=== PATIENT | male | born 1955 | race Caucasian/White ===

== ENCOUNTER 2022-10-16 15:48 | Emergency (ER) | payer OTHER, MEDICARE ==
[2022-10-16] MEDS ORDERED: ONDANSETRON 4 MG/2 ML VIAL ONE (16:16)
[2022-10-16] MEDS ORDERED: FAMOTIDINE 20 MG/2 ML VIAL IV ONE (16:16)
[2022-10-16] MEDS ORDERED: NA CHLORIDE 0.9% 500 ML ONE (16:16)
[2022-10-16 16:37] LABS: Absolute Lymphocytes (CBC) 1.1 K/uL (0.7-4.9); Hematocrit 40.4 % (39.6-49.0); Lymphocytes % 9.4 % (15.3-44.8); MCV 99.1 fL (80-100); MPV 8.9 fL (7.6-11.3); Platelets 211 thou/uL (152-406); RBC Red Blood Cell Count 4.08 M/uL (4.33-5.43)
[2022-10-16 16:43] LABS: Albumin 3.4 g/dL (3.4-5.0); Bilirubin Total 0.9 mg/dL (0.2-1.0); Protein, Total 6.7 g/dL (6.4-8.2)
[2022-10-16 17:29] LABS: Specific Gravity 1.011 (1.005-1.030); Urine Bacteria <20 /HPF (<20); Urine Bilirubin NEGATIVE (Negative); Urine Blood 2+ (Negative); Urine Clarity Extremely Turbid (Clear); Urine Color Light-Yellow (Yellow); Urine Crystals Unidentified Few /HPF (None Seen); Urine Glucose NEGATIVE (Negative); Urine Mucus Slight /HPF (None Seen); Urine Protein 1+ (Negative); Urine RBC >50 /HPF (None Seen); Urine Urobilinogen Normal (Normal); Urine WBC Clump Rare /HPF (None Seen); Urine pH 7.5 (5.0-7.0)
--- NOTE | 2022-10-16 19:50 | RAD REPORT ---
EXAM DESCRIPTION: CT - Stone Protocol - 10/16/2022 7:06 pm CLINICAL HISTORY: right flank pain COMPARISON: No comparisons TECHNIQUE: Thin cut axial CT imaging of the abdomen and pelvis was performed without IV contrast. Mu ltiplanar reformats were generated and reviewed. All CT scans are performed using dose optimization technique as appropriate and may include automated exposure control or mA/KV adjustment according to patient size. FINDINGS: No suspicious findings in the lung bases. The liver, spleen, and pancreas show no suspicious findings. Gallbladder and biliary tree are also wi thout suspicious finding. Atrophic changes of the left more than right kidney, with numerous discrete calcifications at the lef t superior pole, which may be present within a cyst or represent stones within a caliceal diverticulu m. No suspicious parenchymal findings within limits of noncontrast technique. Right mild to moderate hydroureteronephrosis with right perinephric fat stranding, without evidence of obstructing calculi. Numerous nonobstructing left mid to lower pole renal calculi the largest measuring 8 millimeter. No dilated bowel loops or bowel wall thickening. No free air, free fluid or inflammatory stranding. N o hernia, mass or bulky lymphadenopathy. The urinary bladder is without significant wall thickening g iven a degree of nondistention, demonstrates numerous layering calculi dependently largest measuring 8 millimeter. Radiation beads are seen within the prostate gland. Inferior endplate L2 mild central compression deformity. This is likely chronic given this vacuum phe nomenon and adjacent disc space. Sclerotic lesion involving the posterior body, pedicle, and base of the transverse process of S1 measuring 4 cm. Other numerous smaller sclerotic lesions throughout the pelvic bones and proximal right femur as well as few similar lesions within the upper lumbar vertebra e. . IMPRESSION: Mild to moderate right hydroureteronephrosis with right perinephric fat stranding. No ob structing calculi along the right urinary tract, although there are calculi layering dependently with in the urinary bladder. Findings may relate to a recently passed stone. Asymmetric atrophy of the left kidney. Numerous discrete calcifications seen at the left upper pole w hich may be within a cyst or represent stones within a caliceal diverticulum. Other nonobstructing le ft renal calculi largest measuring 8 millimeter. Numerous sclerotic lesions as above, indeterminate, but could relate to osseous metastatic disease.
[2022-10-16] MEDS ORDERED: Meropenem 1000 MG/VIAL IV ONE (20:16)
[2022-10-16] MEDS ORDERED: NA CHLORIDE 0.9% 100 ML ONE (20:16)
--- NOTE | 2022-10-16 20:16 | EDPHYS ---
Physician Documentation [facility] Name: Sanchez Emery Age: 66 yrs Sex: Male : 1955 Arrival Date: 10/16/2022 Time: 15:48 Bed 16 Private MD: ED Physician Parviz Sutton HPI: 10/16 19:22 This 66 yrs old Male presents to ER via EMS with complaints of Abdominal Pain, kdr Nausea/Vomiting. 19:24 Patient presents with right flank pain that began this morning. Patient has not had kdr anything like this before. Patient had some nausea and vomiting along with it. Patient states his last bowel movement about 4 to 5 days ago. Patient otherwise nontoxic-appearing. He responded well to the Zofran given on admission.. Onset: The symptoms/episode began/occurred suddenly, this morning. Severity of symptoms: At their worst the symptoms were mild in the emergency department the symptoms have improved mildly. The patient has not experienced similar symptoms in the past. The patient has not recently seen a physician. Historical: - Allergies: 15:57 No Known Allergies; kc6 - PMHx: 15:57 Diabetes mellitus; Hypertensive disorder; intussceception; hernia; prosate cancer; kc6 - PSHx: 15:57 colon resection; kc6 - Immunization history:: Client reports receiving the 2nd dose of the Covid vaccine, Flu vaccine is up to date. - Social history:: Smoking status: Patient denies any tobacco usage or history of. ROS: 19:24 Constitutional: Negative for fever, chills, and weight loss, Eyes: Negative for injury, kdr pain, redness, and discharge, ENT: Negative for injury, pain, and discharge, Neck: Negative for injury, pain, and swelling, Cardiovascular: Negative for chest pain, palpitations, and edema, Respiratory: Negative for shortness of breath, cough, wheezing, and pleuritic chest pain, Back: Negative for injury and pain, : Negative for injury, bleeding, discharge, and swelling, MS/Extremity: Negative for injury and deformity, Skin: Negative for injury, rash, and discoloration, Neuro: Negative for headache, weakness, numbness, tingling, and seizure activity. Psych: Negative for depression, anxiety, suicide ideation, homicidal ideation, and hallucinations, Allergy/Immunology: Negative for hives, rash, and allergies, Endocrine: Negative for neck swelling, polydipsia, polyuria, polyphagia, and marked weight changes, Hematologic/Lymphatic: Negative for swollen nodes, abnormal bleeding, and unusual bruising. 19:24 Abdomen/GI: Positive for nausea and vomiting, of the anterior aspect of right lateral abdomen, posterior aspect of right lateral abdomen and right lower quadrant. Exam: 19:24 Constitutional: This is a well developed, well nourished patient who is awake, alert, kdr and in no acute distress. Head/Face: Normocephalic, atraumatic. Eyes: Pupils equal round and reactive to light, extra-ocular motions intact. Lids and lashes normal. Conjunctiva and sclera are non-icteric and not injected. Cornea within normal limits. Periorbital areas with no swelling, redness, or edema. Neck: Trachea midline, no thyromegaly or masses palpated, and no cervical lymphadenopathy. Supple, full range of motion without nuchal rigidity, or vertebral point tenderness. No Meningismus. Chest/axilla: Normal chest wall appearance and motion. Nontender with no deformity. No lesions are appreciated. Cardiovascular: Regular rate and rhythm with a normal S1 and S2. No gallops, murmurs, or rubs. Normal PMI, no JVD. No pulse deficits. Respiratory: Lungs have equal breath sounds bilaterally, clear to auscultation and percussion. No rales, rhonchi or wheezes noted. No increased work of breathing, no retractions or nasal flaring. Back: No spinal tenderness. No costovertebral tenderness. Full range of motion. Skin: Warm, dry with normal turgor. Normal color with no rashes, no lesions, and no evidence of cellulitis. MS/ Extremity: Pulses equal, no cyanosis. Neurovascular intact. Full, normal range of motion. Neuro: Awake and alert, GCS 15, oriented to person, place, time, and situation. Cranial nerves II-XII grossly intact. Motor strength 5/5 in all extremities. Sensory grossly intact. Cerebellar exam normal. Normal gait. Psych: Awake, alert, with orientation to person, place and time. Behavior, mood, and affect are within normal limits. 19:24 Abdomen/GI: Inspection: abdomen appears normal, obese Bowel sounds: active, Palpation: soft, mild abdominal tenderness, in the right upper quadrant and right lower quadrant, rebound tenderness, is not appreciated. Vital Signs: 15:55 BP 183 / 76; Pulse 65; Resp 16 S; Temp 97.6(O); Pulse Ox 100% on R/A; Weight 104.33 kg kc6 (R); Height 5 ft. 11 in. (R); Pain 3/10; 17:19 BP 165 / 78; Pulse 70; Resp 20 S; Pulse Ox 98% on R/A; kc6 19:32 BP 134 / 85; Pulse 75; Resp 16 S; Pulse Ox 99% on R/A; ha1 20:30 BP 164 / 78; Pulse 76; Resp 16 S; Pulse Ox 100% on R/A; ha1 21:10 BP 161 / 84; Pulse 74; Resp 19 S; Pulse Ox 100% on R/A; ha1 22:10 BP 102 / 67; Pulse 82; Resp 20 S; Temp 99.2(O); Pulse Ox 97% on R/A; ha1 23:15 BP 143 / 62; Pulse 80; Resp 17 S; Pulse Ox 97% on R/A; ha1 10/17 00:10 BP 138 / 78; Pulse 81; Resp 16 S; Pulse Ox 96% on R/A; ha1 10/16 15:55 Body Mass Index 32.08 (104.33 kg, 180.34 cm) [facility] 10/16 15:55 Pain Scale: Adult [facility] MDM: 10/16 19:41 Patient medically screened. [facility] 20:27 Differential Diagnosis sepsis. Data reviewed: vital signs, nurses notes, lab test armando result(s), radiologic studies, CT scan. Consideration of Admission/Observation Escalation of care including admission/observation considered. I considered the following discharge prescriptions or medication management in the emergency department Medications were administered in the Emergency Department. See MAR. Independent interpretation of the following test(s) in the Emergency Department CT Scan: My interpretation is ct stone. Test considered but Not performed: Ultrasound no renal usg. Care significantly affected by the following chronic conditions: Diabetes, Hypertension, Cancer, intussceception. Counseling: I had a detailed discussion with the patient and/or guardian regarding the historical points, exam findings, and any diagnostic results supporting the discharge/admit diagnosis, lab results, radiology results, the need to transfer to another facility, for higher level of care, [facility]. 10/16 16:02 Order name: CBC with Diff; Complete Time: 18:03 kdr 10/16 16:02 Order name: CMP; Complete Time: 18:03 kdr 10/16 16:02 Order name: Lipase; Complete Time: 18:03 kdr 10/16 16:02 Order name: Urinalysis w/ reflexes; Complete Time: 18:03 kdr 10/16 17:33 Order name: Urine Culture EDMN 10/16 19:54 Order name: Blood Culture Adult (2) [facility] 10/16 19:54 Order name: Lactate w/ 2H reflex if indic.; Complete Time: 21:49 armando 10/16 18:52 Order name: CT Stone Protocol; Complete Time: 19:51 kdr 10/16 16:02 Order name: IV Saline Lock; Complete Time: 16:18 kdr 10/16 16:02 Order name: Labs collected and sent; Complete Time: 16:18 kdr 10/16 20:55 Order name: Guardado; Complete Time: 22:20 armando Administered Medications: 16:18 Drug: Ondansetron IVP 4 mg Route: IVP; Site: left wrist; kc6 17:20 Follow up: Response: No adverse reaction; Nausea is decreased; Vomiting decreased kc6 16:18 Drug: NS 0.9% IV 500 ml Route: IV; Rate: bolus; Site: left wrist; kc6 17:19 Follow up: Response: No adverse reaction; IV Status: Completed infusion; IV Intake: kc6 500ml 16:18 Drug: Famotidine IVP 20 mg Route: IVP; Site: left wrist; kc6 17:19 Follow up: Response: No adverse reaction kc6 20:00 Drug: NS 0.9% IV 1000 ml Route: IV; Rate: 1 bolus; Site: left wrist; ha1 22:20 Drug: Meropenem IV 1 grams Route: IV; Rate: per protocol; Site: left forearm; ha1 23:00 Follow up: Response: No adverse reaction; IV Status: Completed infusion; IV Intake: ha1 100ml Disposition Summary: 10/16/22 20:15 Transfer Ordered Transfer Location: [facility] armando Reason: Higher level of care armando Condition: Stable armando Problem: new armando Symptoms: have improved armando Accepting Physician: to [facility](10/17/22 00:43) ha1 Diagnosis - Other and unspecified hydronephrosis - right moderate hydro armando - Elevated white blood cell count armando - Abnormal results of kidney function studies - acute on chronic armando - UTI/ Urinary tract infection, site not specified armando - Vomiting armando Forms: - Medication Reconciliation Form armando - SBAR form armando Signatures: Dispatcher [employer] Parviz Mcconnell MD MD cha Rittger, Kevin, MD MD kdr Ayala, Heidy, RN RN ha1 Alanna Ledbetter RN RN kc6 Corrections: (The following items were deleted from the chart) 20:25 20:15 to [facility] armando armando 10/17 00:43 10/16 20:25 to [facility] armando ha1
--- NOTE | 2022-10-16 20:16 | ER ---
Nurse's Notes [facility] Name: Sanchez Emery Age: 66 yrs Sex: Male : 1955 Arrival Date: 10/16/2022 Time: 15:48 Bed 16 Private MD: Diagnosis: Other and unspecified hydronephrosis-right moderate hydro;Elevated white blood cell count;Abnormal results of kidney function studies-acute on chronic;UTI/ Urinary tract infection, site not specified;Vomiting Presentation: 10/16 15:55 Chief complaint: EMS states: RUQ and RLQ pain with n/v that began today. BGL en route kc6 149. 4mg PO zofran given. Coronavirus screen: At this time, the client does not indicate any symptoms associated with coronavirus-19. Ebola Screen: No symptoms or risks identified at this time. Initial Sepsis Screen: Does the patient meet any 2 criteria? No. Patient's initial sepsis screen is negative. Does the patient have a suspected source of infection? No. Patient's initial sepsis screen is negative. Risk Assessment: Do you want to hurt yourself or someone else? Patient reports no desire to harm self or others. Onset of symptoms was October 16, 2022. 15:55 Method Of Arrival: EMS: [facility] kc6 15:55 Acuity: MARCIA 3 kc6 Triage Assessment: 15:57 General: Appears in no apparent distress. obese, unkempt, Behavior is calm, kc6 cooperative, appropriate for age. Pain: Complains of pain in right upper quadrant and right lower quadrant Pain does not radiate. Pain currently is 3 out of 10 on a pain scale. EENT: No signs and/or symptoms were reported regarding the EENT system. Neuro: Level of Consciousness is awake, alert, obeys commands, Oriented to person, place, time, situation, Appropriate for age. Cardiovascular: Capillary refill < 3 seconds Edema is 4+ to left midcalf, left ankle, right midcalf and right ankle pitting to left midcalf, left ankle, right midcalf and right ankle. Respiratory: Airway is patent Trachea midline Respiratory effort is even, unlabored, Respiratory pattern is regular, symmetrical. GI: Abdomen is round non-distended, obese, Bowel sounds present X 4 quads. Abd is soft X 4 quads Abdomen is tender to palpation in right upper quadrant and right lower quadrant Reports lower abdominal pain, upper abdominal pain, constipation, nausea, vomiting, Patient currently denies diarrhea. : No signs and/or symptoms were reported regarding the genitourinary system. Derm: No signs and/or symptoms reported regarding the dermatologic system. Skin is intact, is healthy with good turgor, Skin is pink, warm \T\ dry. Musculoskeletal: No signs and/or symptoms reported regarding the musculoskeletal system. Circulation, motion, and sensation intact. Capillary refill < 3 seconds, Range of motion: intact in all extremities. Historical: - Allergies: 15:57 No Known Allergies; kc6 - PMHx: 15:57 Diabetes mellitus; Hypertensive disorder; intussceception; hernia; prosate cancer; kc6 - PSHx: 15:57 colon resection; kc6 - Immunization history:: Client reports receiving the 2nd dose of the Covid vaccine, Flu vaccine is up to date. - Social history:: Smoking status: Patient denies any tobacco usage or history of. Screenin:[facility] ED Fall Risk Assessment (Adult) History of falling in the last 3 months, kc6 including since admission No falls in past 3 months (0 pts) Confusion or Disorientation No (0 pts) Intoxicated or Sedated No (0 pts) Impaired Gait Yes (1 pt) Mobility Assist Device Used Yes (1 pt) Altered Elimination No (0 pt) Score/Fall Risk Level 0 - 2 = Low Risk. Abuse screen: Denies threats or abuse. Denies injuries from another. Nutritional screening: No deficits noted. Tuberculosis screening: No symptoms or risk factors identified. Assessment: 16:01 Reassessment: please see triage assessment. [facility] 17:18 Reassessment: Patient appears in no apparent distress at this time. Patient and/or [facility] family updated on plan of care and expected duration. Pain level reassessed. Patient is alert, oriented x 3, equal unlabored respirations, skin warm/dry/pink. Derm: Skin is intact, is healthy with good turgor, Skin is pink, warm \T\ dry. Bruising that is dark purple, on buttocks. 18:03 Reassessment: Patient appears in no apparent distress at this time. No changes from kc previously documented assessment. Patient and/or family updated on plan of care and expected duration. Pain level reassessed. Patient is alert, oriented x 3, equal unlabored respirations, skin warm/dry/pink. 18:47 Reassessment: Patient appears in no apparent distress at this time. No changes from kc6 previously documented assessment. Patient and/or family updated on plan of care and expected duration. Pain level reassessed. Patient is alert, oriented x 3, equal unlabored respirations, skin warm/dry/pink. 18:58 Reassessment: Mirna Edouard (sister) [phone]. kc6 19:30 General: Appears comfortable, Behavior is calm, cooperative. Pain: Complains of pain in ha1 anterior aspect of right lateral abdomen and buttocks Pain does not radiate. Pain currently is 5 out of 10 on a pain scale. Quality of pain is described as pressure, tender. Neuro: Level of Consciousness is awake, alert, obeys commands, Oriented to person, place, time, situation. Cardiovascular: Capillary refill < 3 seconds. Respiratory: Airway is patent Respiratory effort is even, unlabored, Respiratory pattern is regular, symmetrical. GI: Abdomen is round non-distended, Bowel sounds present X 4 quads. Reports upper abdominal pain, nausea, vomiting. Musculoskeletal: Circulation, motion, and sensation intact. Range of motion: intact in all extremities. 20:30 Reassessment: Patient and/or family updated on plan of care and expected duration. Pain ha1 level reassessed. Patient is alert, oriented x 3, equal unlabored respirations, skin warm/dry/pink. 21:10 Reassessment: Patient and/or family updated on plan of care and expected duration. Pain ha1 level reassessed. Patient is alert, oriented x 3, equal unlabored respirations, skin warm/dry/pink. 22:00 Reassessment: attempted to give report. ha1 22:10 Reassessment: Patient and/or family updated on plan of care and expected duration. Pain ha1 level reassessed. Patient is alert, oriented x 3, equal unlabored respirations, skin warm/dry/pink. 22:25 Reassessment: attempted to give report. ha1 22:50 Reassessment: report given to LENORA Nixon. ha1 23:10 Reassessment: Patient and/or family updated on plan of care and expected duration. Pain ha1 level reassessed. Patient is alert, oriented x 3, equal unlabored respirations, skin warm/dry/pink. 10/17 00:10 Reassessment: Patient and/or family updated on plan of care and expected duration. Pain ha1 level reassessed. Patient is alert, oriented x 3, equal unlabored respirations, skin warm/dry/pink. Vital Signs: 10/16 15:55 BP 183 / 76; Pulse 65; Resp 16 S; Temp 97.6(O); Pulse Ox 100% on R/A; Weight 104.33 kg kc6 (R); Height 5 ft. 11 in. (R); Pain 3/10; 17:19 BP 165 / 78; Pulse 70; Resp 20 S; Pulse Ox 98% on R/A; kc6 19:32 BP 134 / 85; Pulse 75; Resp 16 S; Pulse Ox 99% on R/A; ha1 20:30 BP 164 / 78; Pulse 76; Resp 16 S; Pulse Ox 100% on R/A; ha1 21:10 BP 161 / 84; Pulse 74; Resp 19 S; Pulse Ox 100% on R/A; ha1 22:10 BP 102 / 67; Pulse 82; Resp 20 S; Temp 99.2(O); Pulse Ox 97% on R/A; ha1 23:15 BP 143 / 62; Pulse 80; Resp 17 S; Pulse Ox 97% on R/A; ha1 10/17 00:10 BP 138 / 78; Pulse 81; Resp 16 S; Pulse Ox 96% on R/A; ha1 10/16 15:55 Body Mass Index 32.08 (104.33 kg, 180.34 cm) [facility] 10/16 15:55 Pain Scale: Adult [facility] ED Course: 10/16 15:50 Patient arrived in ED. eb 15:55 Alanna Ledbetter, RN is Primary Nurse. [facility] 15:57 Triage completed. [facility] 15:57 Arm band placed on. kc 16:00 Patient has correct armband on for positive identification. Bed in low position. Call [facility] light in reach. Side rails up X2. 16:02 Wally Pinto MD is Attending Physician. kdr 16:18 Inserted saline lock: 20 gauge in left wrist, using aseptic technique. Blood collected. [facility] 17:20 Urinalysis w/ reflexes Sent. kc6 19:08 CT Stone Protocol In Process Unspecified. EDMS 19:40 Attending Physician role handed off by Wally Pinto MD [facility] 19:40 Parviz Sutton MD is Attending Physician. [facility] 20:31 Primary Nurse role handed off by Alanna Ledbetter, LENORA 20:36 Missed attempt(s): 22 gauge in right antecubital area. sm8 21:50 Guardado cath inserted, using sterile technique, 16 Fr., by ga, balloon inflated, to [facility] [place] [facility] gravity drainage. 22:20 Blood Culture Adult (2) Sent. ha1 22:22 Sylvia Torres, RN is Primary Nurse. 1 10/17 00:42 Provided Education on: need to transfer . ha1 00:42 No provider procedures requiring assistance completed. Patient transferred, IV remains ha1 in place. Administered Medications: 10/16 16:18 Drug: Ondansetron IVP 4 mg Route: IVP; Site: left wrist; kc6 17:20 Follow up: Response: No adverse reaction; Nausea is decreased; Vomiting decreased [facility] 16:18 Drug: NS 0.9% IV 500 ml Route: IV; Rate: bolus; Site: left wrist; kc6 17:19 Follow up: Response: No adverse reaction; IV Status: Completed infusion; IV Intake: kc6 500ml 16:18 Drug: Famotidine IVP 20 mg Route: IVP; Site: left wrist; kc6 17:19 Follow up: Response: No adverse reaction 6 20:00 Drug: NS 0.9% IV 1000 ml Route: IV; Rate: 1 bolus; Site: left wrist; ha1 22:20 Drug: Meropenem IV 1 grams Route: IV; Rate: per protocol; Site: left forearm; ha1 23:00 Follow up: Response: No adverse reaction; IV Status: Completed infusion; IV Intake: ha1 100ml Medication: 10/17 00:42 VIS not applicable for this client. ha1 Intake: 10/16 17:19 IV: 500ml; Total: 500ml. kc6 23:00 IV: 100ml; Total: 600ml. ha1 Outcome: 20:15 ER care complete, transfer ordered by . [facility] 10/17 00:42 Transferred by ground EMS to [facility] [place] [facility] Condition: stable Discharge instructions given to patient, family, Instructed on the need for transfer, Demonstrated understanding of instructions. 00:43 Patient left the ED. ha1 Signatures: Dispatcher [employer] EDParviz Riggs MD MD cha Rittger, Kevin, MD MD kdr Botello, Elizabeth eb Marsh, Wendy wm Ayala, Heidy, RN RN ha1 Alanna Ledbetter RN RN kc6 Nohemy Malave 8 Corrections: (The following items were deleted from the chart) 10/16 20:23 20:21 Meropenem IV 1 grams IV at per protocol in left wrist ha1 ha1
[2022-10-16] MEDS ORDERED: NA CHLORIDE 0.9% 1,000 ML ONE (20:37)
[2022-10-17 00:53] VITALS: TEMP 99.2
[2022-10-17 00:55] VITALS: BP 138/78; O2SAT 96
== END 2022-10-17 00:43 | disposition short-term general hospital (02) ==
LOC: ER 15:48
DX: N13.39 Other hydronephrosis (principal); N13.30 Unspecified hydronephrosis; N39.0 Urinary tract infection, site not specified; D72.829 Elevated white blood cell count, unspecified; R11.10 Vomiting, unspecified; R94.4 Abnormal results of kidney function studies; E11.9 Type 2 diabetes mellitus without complications; I10 Essential (primary) hypertension
CPT/HCPCS: 96365; 96361; 87040 ×2; 87088; 85025; 81001; 87086; 36415; 87205; 83605; 87077; 87186; 83690; 80053; 76377; 74176; 51702; 96375; 99285; J2185; J2405; J7040; J7030